=== PATIENT | female | born 1995 | race Caucasian/White ===

== ENCOUNTER 2021-04-26 09:54 | Inpatient (IN) | payer OTHER ==
[~2021-04-26] VITALS: Ht 160 cm; Wt 97.3 kg
[2021-04-26] VITALS (18 sets, daily range): BP systolic 108–150; BP diastolic 65–87
[2021-04-26] MEDS ORDERED: FLINCHW2 PO (10:26)
[2021-04-26] MEDS ORDERED: LACTATED RINGER'S 1000 ML IV STA (11:17)
[2021-04-26] MEDS ORDERED: METHYLERGONOVINE MALEATE 0.2 MG/ML VIAL (J2210) IM PRN (11:20)
[2021-04-26] MEDS ORDERED: CARBOPROST TROMETHAMINE 250 MCG/ML AMP IM PRN (11:20)
[2021-04-26] MEDS ORDERED: LIDOCAINE 1% MDV 20ML VIAL INFIL PRN (11:20)
[2021-04-26] MEDS ORDERED: TRANEXAMIC ACID INJection 1,000 MG in NS 100 ML IV PRN (11:20)
[2021-04-26] MEDS ORDERED: OXYTOCIN DRIP 30 UNITS in IV 1 EA IV SCH (11:20)
[2021-04-26] MEDS ORDERED: OXYTOCIN DRIP 30 UNITS in IV 1 EA IV PRN ×4 (11:20)
[2021-04-26] MEDS ORDERED: LR 1,000 ML IV SCH (11:20)
[2021-04-26 12:40] LABS: HEMATOCRIT 39.9 % (36.0-47.0); HEMOGLOBIN 13.3 g/dl (12.0-15.5); MEAN CORPUSCULAR HEMOGLOBIN 28.6 pg (27.0-33.0); MEAN CORPUSCULAR HGB CONC 33.3 g/dl (32.0-36.5); MEAN CORPUSCULAR VOLUME 85.8 fl (80.0-96.0); PLATELET COUNT, AUTOMATED 219 10^3/uL (150-450); RED BLOOD COUNT 4.65 10^6/uL (4.00-5.40); WHITE BLOOD COUNT 10.7 10^3/uL (4.0-10.0)
--- NOTE | 2021-04-26 12:40 | HPEPDOC ---
Obstetrical History & Physical General Date of Admission Apr 26, 2021 at 09:54 History of Present Illness 25yo presents to L&D today for scheduled IOL at 41+1wks, for late term IOL. Still reporting irregular contractions, no more intense than when seen in clinic 2 days ago. Denies LOF or vaginal bleeding. Reporting good FM. No other concerns today. Chief Complaint: Induction of labor Information Provided By: Patient Age: 25 : 2 Term: 1 Pre-term: 0 Abortions: 0 Livin Care Care: Good Care Dating Final EDC: Apr 18, 2021 Final EDC for Daily Update: Apr 18, 2021 Final EDC by: LMP, 1st trimester (US) LMP: Jul 12, 2020 1st Trimester Date: Sep 19, 2020 Weeks + Days: 10.0 Estimated Date of Confinement: Apr 17, 2021 EGA at Admission: 41.1 Antepartum Course Diagnos(e)s Overweight with Excessive Wt Gain Height (inches): 64 Pre- weight (lbs.): 163 Admission Weight (lbs.): 215.2 Change in Weight (lbs.): 52.2 Past Medical History Past Obstetrical History : Past Obstetrical History: Multigravida (04/2019 at 40wks gestation, 7#13oz. No complications) [employer]ER SHA[employer] SINKING History: No pertinent history Past Medical History Medical History Seasonal Allergies, Eczema Surgical History: Denies/None Family History Significant Family History: No pertinent family hx Social History Marital Status: Family situation: Spouse/partner home Psychosocial History: No pertinent psych hx * Smoker: non-smoker Alcohol: Denies Drugs: denies Imunizations Tdap status: current Influenza Status: current Allergies Coded Allergies: Cephalosporins (Verified Allergy, Severe, anaphylaxis, 04/26/21) Penicillins (Verified Allergy, Severe, anaphylaxis, 04/26/21) iodine (Verified Allergy, Severe, anaphylaxis , 04/26/21) shellfish derived (Verified Allergy, Severe, anaphylaxis, 04/26/21) Medications Miscellaneous Medications Multivitamin (Flintstones) 1 Each Tab.chew, 1 CHW PO Physical Examination Physical Examination GENERAL: Alert and oriented times three. In no acute distress. BREAST: . ABDOMEN: Gravid and non-tender to touch. +BS x4 quad. FETUS: Is vertex (VTX) by sterile vaginal examination (SVE) & by Gus. HEART RATE: Regular rate and rhythm. LUNGS: Clear to auscultation (CTA). Unlabored breathing. EXTREMITIES: No edema. No calf tenderness. Vital Signs/I&O Vital Signs Date Time Temp Pulse Resp B/P (MAP) Pulse Ox O2 Delivery O2 Flow Rate FiO2 04/26/21 10:24 98.3 98 18 108/71 (83) Laboratory Data 24H LABS Laboratory Tests 2 04/26/21 10:03: Serology Scanned Report Hepatitis B Testing Urine Culture: Contaminated Pertinent Laboratoy Data Blood Type: AB+ RBC Antibody Screen: Negative HIV: Negative Hepatitis B: Negative Rapid Plasma Reagin: Nonreactive Rubella: Immune Varicella: Immune Chlamydia/Gonorrhea: Negative Group B Streptococcus: Negative Cystic Fibrosis: Negative Glucose Tolerance Test: 98 Anatomy Ultrasound Ultrasound Date: Dec 31, 2020 Placenta Location: Posterior Normal Anatomy: Yes Placenta Previa: No Vaginal Examination Dilation: 4 cm Effacement: 50% Station: -3 Cervical Consistency: Medium Cervical Position: Middle Presentation: Cephalic presentation Assessment Heart Rate (FHR): 135 Variability: Moderate Accelerations: Present Decelerations: None Tocometer Contractions: Yes Frequency: irregular Duration: less than 60 seconds Strength: palpated as mild Multi-drug resistant Organism: No history of MDRO Assessment/Plan Assessment 25-year-old at 41+1wks gestation, presents for late term IOL. AB+, GBS neg, /RI Reactive NST VTX by Laney, EFW 3900gm by Stefania SVE: 4/50/-3, mid/mod, favorable cervix Plan Admit and orient. Infection Control Manager and consent. Diet: Regular Labs and intravenous (IV) per unit protocol. Epidural when patient desires. Continuous EFM Counseled on Pitocin and induction of labor, start pitocin now per protocol for Induction. AROM as needed. Lactated Ringers (LR): Bolus 1000mL, then at 125 mL/hr. Consult with physician service as needed. Anticipate normal spontaneous delivery (). Labor and Delivery Counseling Patient counseled on risks of vaginal delivery to include hemorrhage, infection, and possibility of . Discussed options for interventions in labor to include external and internal monitoring, artificial rupture of membranes, induction of labor methods to include Pitocin. Reviewed possibility of blood transfusion in event of hemorrhage. SIPPEL,MARCK M. CN Apr 26, 2021 12:40
--- NOTE | 2021-04-26 14:52 | IPNPDOC ---
Obstetrical Progress Note Date of Service Apr 26, 2021 Subjective Pt reporting increase in contraction pain, but not to point of needing epidural yet. Spouse at Bedside. Spouse interested in assisting with delivery. Objective Vital Signs Date Time Temp Pulse Resp B/P (MAP) Pulse Ox O2 Delivery O2 Flow Rate FiO2 04/26/21 10:24 98.3 98 18 108/71 (83) Assessment Heart Rate (FHR): 130 Variability: Moderate Accelerations: Positive Decelerations: None Heart Rate Tracing: Category I Tocometer Contractions: Yes Frequency: regular, every 2-5 min. Duration: greater than 60 seconds Strength: palpated as moderate Sterile Vaginal Examination Dilation: 5 cm (-6) Effacement (%): 60% Station: -2 Cervical Consistency: Soft Cervical Position: Middle Postion/Presentation: Cephalic presentation Assessment and Plan Additional Comments 25yo at 41+1wks: admitted for IOL today RH pos/GBS neg/RI/ VSS FHR Cat 1 tracing Managing with pain, may have epidural when patient desires SVE: 5-6/60%/-2. AROM with clear fluid at 1407. Continue IOL with pitocin, titrate per protocol Consult with physician service as needed. Anticipate . MARCK NEGRETE CNM Apr 26, 2021 14:52
[2021-04-26] MEDS ORDERED: METHYLERGONOVINE MALEATE 0.2 MG TAB PO PRN (16:40)
[2021-04-26] MEDS ORDERED: DIBUCAINE 1% OINTMENT 30GM TOP PRN (16:40)
[2021-04-26] MEDS ORDERED: IBUPROFEN 800 MG TAB PO PRN (16:40)
[2021-04-26] MEDS ORDERED: DOCUSATE SODIUM 100MG CAPSULE PO PRN (16:40)
[2021-04-26] MEDS ORDERED: IBUPROFEN 600MG TAB PO PRN (16:40)
[2021-04-26] MEDS ORDERED: ONDANSETRON 4MG/2ML VIAL IV PRN (16:40)
[2021-04-26] MEDS ORDERED: ACETAMINOPHEN TAB 650MG DOSE (2X325MG) PO PRN (16:40)
--- NOTE | 2021-04-26 16:51 | DNPDOC ---
[facility] Delivery Note Delivery Note DATE OF DELIVERY: 26 April 2021 PREDELIVERY DIAGNOSIS: 25yo at 41+1 weeks' gestation, IOL for late term. POST DELIVERY DIAGNOSIS: Spontaneous vaginal delivery. PROCEDURE: Spontaneous vaginal delivery Delivery Provider: MAJ Kayla Negrete CNM ANESTHESIA: None ESTIMATED BLOOD LOSS: 250 mL. FINDINGS: Delivered viable infant male weighing 3560gm (7#14oz), Score 9/10. DELIVERY SUMMARY: Patient is a 25-year-old 2 now para 2-0-0-2 who was admitted to labor and delivery for IOL for late term. Progressed to C/C/+3 without any anesthesia on pitocin titration. Well controlled, spontaneous pushing efforts delivered infant OA. Right anterior shoulder, posterior shoulder, and corpus delivered easily with maternal pushing efforts. FOB assisting with delivery under this provider's hands on direction. Infant to maternal abdomen for drying, stimulation and assessment by nursing staff. Cord clamped x2 and cut by FOB following cessation of pulse. Placenta delivered with gentle cord traction, in Lukas mechanism, appears complete and intact. Fundus massaged to firm with minimal bleeding. Inspection revealed small, hemostatic and approximated clitoral laceration. No repair indicated. P erineum intact. Patient stable and at radiant warmer for assessment when I left room. Intends to breastfeed and use barrier method for control. KAYLA NEGRETE CNM Apr 26, 2021 16:51
--- NOTE | 2021-04-26 16:53 | IPNPDOC ---
Text Note Date of Service The patient was seen on 04/26/21. NOTE Date of Service Apr 26, 2021 Subjective Pt now feeling more pressure with contractions. Declining epidural at this time. Spouse at Bedside. Objective Vital Signs: mild elevations in BP SVE per RN: 8/0/0 Pitocin currently at 4mu/min Assessment Heart Rate (FHR): 125 Variability: Moderate Accelerations: Positive Decelerations: None Heart Rate Tracing: Category I Tocometer Contractions: Yes Frequency: regular, every 2 min. Duration: greater than 60 seconds Assessment and Plan Additional Comments 25yo at 41+1wks: admitted for IOL today RH pos/GBS neg/RI/ Intermittent elevated BP due to pain, repeats normal. FHR Cat 1 tracing Managing with pain, not interested in epidural at this time. SVE: 8/90/0. Continues with clear fluid. Continue IOL with pitocin, titrate per protocol Consult with physician service as needed. Anticipate . VS,Fishbone, I+O VS, Fishbone, I+O Laboratory Tests 04/26/21 12:24 Vital Signs Date Time Temp Pulse Resp B/P (MAP) Pulse Ox O2 Delivery O2 Flow Rate FiO2 04/26/21 15:53 100 20 150/81 (104) 04/26/21 13:54 98.3 MARCK NEGRETE CNM Apr 26, 2021 16:53
[2021-04-26] MEDS: ACETAMINOPHEN 500 MG TAB PO PRN (19:56)
[2021-04-27 06:00] VITALS: BP 138/83
--- NOTE | 2021-04-27 07:12 | IPNPDOC ---
Progress Note Date of Service: Apr 27, 2021 Day#: 1 Progress Note Patient is a 25-year-old 2 now para 2-0-0-2 who was admitted to labor and delivery for IOL for late term. Delivered viable infant male weighing 3560gm (7#14oz), Score 9/10. She has been ambulating, voiding s pontaneously without issue and tolerating regular diet. Breast feeding without issue. Reports lochia is like a normal period. Patient is ambulating well. Reports some cramping with . Denies any pain. Voiding and passing flatus without difficulty. OBJECTIVE: VITAL SIGNS: Within normal limits, afebrile. Alert and oriented times three. No increased WOB Heart rate: non-tachy Abdomen: Fundus firm at U-2. Soft, NTTP. Minimal lochia per patient ASSESSMENT: Patient is a 25-year-old 2 now para 2-0-0-2 who was admitted to labor and delivery for IOL for late term. Delivered viable infant male weighing 3560gm (7#14oz), Score 9/10. Vitals within normal limits, afebrile, hemodynamically stable with no evidence of infection. PLAN: 1. Discharge to home likely tomorrow. 2. Tylenol and Motrin for pain. 3. Encourage breast feeding and ambulation. 4. Plans on condoms for contraception, educated on close interval . 5. Routine PP visit in 6 weeks in clinic. 6. Discussed return precautions at length and activity limitations to include pelvic rest. VS, I&O, 24H, Phillipbone Vital Signs/I&O Vital Signs Date Time Temp Pulse Resp B/P (MAP) Pulse Ox O2 Delivery O2 Flow Rate FiO2 04/27/21 06:00 96.4 88 18 138/83 (101) 97 I&O- Last 24 Hours up to 6 AM 04/27/21 06:00 Intake Total 1167 ml Output Total 900 ml Balance 267 ml Laboratory Data 24H LABS Laboratory Tests 2 04/26/21 10:03: Serology Scanned Report Hepatitis B Testing 04/26/21 12:24: Nucleated Red Blood Cells % (auto) 0.0, Syphilis Serology NONREACTIVE CBC/BMP Laboratory Tests 04/26/21 12:24 MARIUSZ RENEE DO Apr 27, 2021 07:12
--- NOTE | 2021-04-27 07:14 | OBDS ---
[facility] Obstetrical Discharge Sum. A/P, Post Course List any complications Patient is a 25-year-old 2 now para 2-0-0-2 who was admitted to labor and delivery for induction of labor for late term. She delivered a viable male weighing 3560gm (7#14oz), Score 9/10. She has been ambulating, voiding spontaneously without issue and tolerating regular diet. Breast feeding without issue. Reports lochia is like a normal period. Patient is ambulating well. Reports some cramping with . Denies any pain. Voiding and passing flatus without difficulty. Vitals within normal limits, afebrile, hemodynamically stable with no evidence of infection. PLAN: 1. Discharge to home. 2. Tylenol and Motrin for pain. 3. Encourage breast feeding and ambulation. 4. Plans on condoms for contraception, educated on close interval . 5. Routine visit planned in 6 weeks in clinic. 6. Discussed return precautions at length (fever, heavy vaginal bleeding, pain uncontrolled with medications, other concerning symptoms) and activity limitations to include pelvic rest. MARIUSZ RENEE DO Apr 27, 2021 07:14
[2021-04-27] MEDS: ACETAMINOPHEN 500 MG TAB PO PRN (08:48)
[2021-04-27] MEDS: PRENATAL VITAMINS CHEWABLE TABLET PO SCH (09:00)
[2021-04-27 18:00] VITALS: BP 138/73
[2021-04-28] MEDS: ACETAMINOPHEN 500 MG TAB PO PRN (05:28)
[2021-04-28 06:00] VITALS: BP 132/81
--- NOTE | 2021-04-28 08:57 | IPNPDOC ---
Progress Note Date of Service: Apr 28, 2021 Day#: 2 Progress Note Patient is a 25-year-old 2 now para 2-0-0-2 who was admitted to labor and delivery for IOL for late term. Delivered viable infant male weighing 3560gm (7#14oz), Score 9/10. She has been ambulating, voiding s pontaneously without issue and tolerating regular diet. Breast feeding without issue. Reports lochia is like a normal period. Patient is ambulating well. Reports some cramping with . Denies any pain. Voiding and passing flatus without difficulty. OBJECTIVE: VITAL SIGNS: Within normal limits, afebrile. Alert and oriented times three. No increased WOB Heart rate: non-tachy Abdomen: Fundus firm at U-2. Soft, NTTP. Minimal lochia per patient ASSESSMENT: Patient is a 25-year-old 2 now para 2-0-0-2 who was admitted to labor and delivery for IOL for late term. Delivered viable infant male weighing 3560gm (7#14oz), Score 9/10. Vitals within normal limits, afebrile, hemodynamically stable with no evidence of infection. PLAN: 1. Discharge to home likely today 2. Tylenol and Motrin for pain. 3. Encourage breast feeding and ambulation. 4. Plans on condoms for contraception, educated on close interval . 5. Routine PP visit in 6 weeks in clinic. 6. Discussed return precautions at length and activity limitations to include pelvic rest. VS, I&O, 24H, Fishbone Vital Signs/I&O Vital Signs Date Time Temp Pulse Resp B/P (MAP) Pulse Ox O2 Delivery O2 Flow Rate FiO2 04/28/21 06:00 98.5 83 18 132/81 (98) 04/27/21 18:00 97 Room Air Laboratory Data 24H LABS Laboratory Tests 04/26/21 12:24 DOROTHY BARR M.D. Apr 28, 2021 08:57
[2021-04-28] MEDS: PRENATAL VITAMINS CHEWABLE TABLET PO SCH (09:00)
== END 2021-04-28 13:10 | disposition home or self-care (01) | DRG 806 ==
LOC: M LDI 09:54 → M OBS 18:30
PROVIDERS: ADMIT Registered Nurse Maternal Newborn; ATTEND Registered Nurse Maternal Newborn
PROC: 10E0XZZ Delivery of Products of Conception, External Approach (ICD-10-PCS; principal; 2021-04-26)
PROC: 3E033VJ Introduction of Other Hormone into Peripheral Vein, Percutaneous Approach (ICD-10-PCS; 2021-04-26)
DX: O48.0 Post-term pregnancy (principal); Z37.0 Single live birth; O71.4 Obstetric high vaginal laceration alone; Z3A.41 41 weeks gestation of pregnancy

== ENCOUNTER 2022-02-25 17:29 | Emergency (ER) | payer OTHER ==
[~2022-02-25] VITALS: Ht 162.6 cm; Wt 80.5 kg
[~2022-02-25 17:29] MED LIST: FLINCHW2 PO
[2022-02-25] MEDS ORDERED: methylPREDNISolone 125MG 2ML VIAL IV ONE (19:00)
[2022-02-25] MEDS ORDERED: FAMOTIDINE 20 MG TAB PO ONE (19:00)
[2022-02-25] MEDS ORDERED: diphenhydrAMINE 50MG CAP PO ONE (19:00)
[2022-02-25 20:40] VITALS: BP 114/62
[2022-02-25] MEDS ORDERED: PRED20TA PO (20:53)
== END 2022-02-25 20:58 | disposition home or self-care (01) ==
LOC: M ED 17:29
DX: J30.1 Allergic rhinitis due to pollen (principal); R21 Rash and other nonspecific skin eruption
CPT/HCPCS: 84702; 96374; 99284; J2930

== ENCOUNTER → 2022-08-04 | Outpatient (CLI) | payer OTHER ==
[~2022-08-04] MED LIST changes: +PRED20TA PO
[2022-08-04 15:53] LABS: HEMATOCRIT 43.6 % (36.0-47.0); HEMOGLOBIN 14.8 g/dl (12.0-15.5); MEAN CORPUSCULAR HEMOGLOBIN 31.1 pg (27.0-33.0); MEAN CORPUSCULAR HGB CONC 33.9 g/dl (32.0-36.5); MEAN CORPUSCULAR VOLUME 91.6 fl (80.0-96.0); PLATELET COUNT, AUTOMATED 285 10^3/uL (150-450); RED BLOOD COUNT 4.76 10^6/uL (4.00-5.40); WHITE BLOOD COUNT 11.6 10^3/uL (4.0-10.0)
[2022-08-04 18:03] LABS: HEPATITIS B SURFACE ANTIGEN NEGATIVE (NEGATIVE); HEPATITIS C VIRUS ABY INDEX < 0.0 INDEX (<0.8); HIV 1&2 SCREEN CENTAUR NEGATIVE (NEGATIVE)
[2022-08-04 19:19] LABS: GC DNA AMPLIFICATION NEGATIVE (NEGATIVE)
== END ==
LOC: M PLALAB 13:21
PROVIDERS: ATTEND Advanced Practice Midwife
DX: Z34.91 Encounter for supervision of normal pregnancy, unspecified, first trimester (principal); Z3A.00 Weeks of gestation of pregnancy not specified

== ENCOUNTER → 2022-10-01 | Outpatient (CLI) | payer OTHER | LOC: M WHC 11:35 | PROVIDERS: ATTEND Advanced Practice Midwife | DX: Z34.92 Encounter for supervision of normal pregnancy, unspecified, second trimester (principal); Z3A.19 19 weeks gestation of pregnancy ==

== ENCOUNTER → 2022-11-18 | Outpatient (CLI) | payer OTHER ==
[2022-11-18 17:22] LABS: HEMATOCRIT 37.4 % (36.0-47.0); HEMOGLOBIN 12.2 g/dl (12.0-15.5); MEAN CORPUSCULAR HEMOGLOBIN 31.2 pg (27.0-33.0); MEAN CORPUSCULAR HGB CONC 32.6 g/dl (32.0-36.5); MEAN CORPUSCULAR VOLUME 95.7 fl (80.0-96.0); PLATELET COUNT, AUTOMATED 270 10^3/uL (150-450); RED BLOOD COUNT 3.91 10^6/uL (4.00-5.40)
== END ==
LOC: M PLALAB 14:26
PROVIDERS: ATTEND Advanced Practice Midwife
DX: Z36.9 Encounter for antenatal screening, unspecified (principal)

== ENCOUNTER 2022-12-31 17:35 | Emergency (ER) | payer OTHER ==
[~2022-12-31] VITALS: Ht 157.5 cm; Wt 94.9 kg
[2022-12-31 19:04] VITALS: BP 127/78
== END 2022-12-31 19:59 | disposition admitted as inpatient to this hospital (09) ==
LOC: M ED 17:35
DX: O9A.213 Injury, poisoning and certain other consequences of external causes complicating pregnancy, third trimester (principal); S30.0XXA Contusion of lower back and pelvis, initial encounter; O26.893 Other specified pregnancy related conditions, third trimester; M54.50 Low back pain, unspecified; W10.9XXA Fall (on) (from) unspecified stairs and steps, initial encounter; F41.9 Anxiety disorder, unspecified; Z88.0 Allergy status to penicillin; Z88.1 Allergy status to other antibiotic agents; Z91.013 Allergy to seafood; Z79.810 Long term (current) use of selective estrogen receptor modulators (SERMs); Z3A.32 32 weeks gestation of pregnancy

== ENCOUNTER 2022-12-31 20:00 | Outpatient (CLI) | payer OTHER ==
[~2022-12-31] VITALS: Ht 157.5 cm; Wt 94.9 kg
[2022-12-31 20:16] VITALS: BP 134/79
[2022-12-31 20:38] LABS: HEMATOCRIT 34.9 % (36.0-47.0); HEMOGLOBIN 11.8 g/dl (12.0-15.5); MEAN CORPUSCULAR HEMOGLOBIN 30.8 pg (27.0-33.0); MEAN CORPUSCULAR HGB CONC 33.8 g/dl (32.0-36.5); MEAN CORPUSCULAR VOLUME 91.1 fl (80.0-96.0); PLATELET COUNT, AUTOMATED 257 10^3/uL (150-450); RED BLOOD COUNT 3.83 10^6/uL (4.00-5.40); WHITE BLOOD COUNT 17.6 10^3/uL (4.0-10.0)
[2022-12-31 21:00] LABS: INR 0.94; PROTHROMBIN TIME 12.8 SECONDS (12.5-14.5)
[2022-12-31 21:01] LABS: PARTIAL THROMBOPLASTIN TIME 27.5 SECONDS (24.8-34.2)
[2022-12-31 21:34] VITALS: BP 120/64
[2023-01-01 00:17] VITALS: BP 134/84
== END 2023-01-01 00:27 | disposition home or self-care (01) ==
LOC: M LDO 20:00
PROVIDERS: ATTEND Advanced Practice Midwife
DX: O26.893 Other specified pregnancy related conditions, third trimester (principal); W10.9XXA Fall (on) (from) unspecified stairs and steps, initial encounter; Y93.9 Activity, unspecified; Y99.9 Unspecified external cause status; Z3A.32 32 weeks gestation of pregnancy
CPT/HCPCS: 36415; 59025; 85027; 85384; 85460; 85610; 85730; 99283; G0463

== ENCOUNTER → 2023-01-23 | Outpatient (CLI) | payer OTHER | LOC: M WHC 13:03 | PROVIDERS: ATTEND Advanced Practice Midwife | DX: Z34.93 Encounter for supervision of normal pregnancy, unspecified, third trimester (principal); Z3A.35 35 weeks gestation of pregnancy ==

== ENCOUNTER → 2023-01-29 | Outpatient (REF) | payer OTHER | LOC: M SFHCWAGY 17:11 | PROVIDERS: ATTEND Obstetrics & Gynecology | DX: Z36.85 Encounter for antenatal screening for Streptococcus B (principal) ==

== ENCOUNTER 2023-02-17 18:15 | Inpatient (IN) | payer OTHER ==
[~2023-02-17] VITALS: Ht 162.6 cm; Wt 96.5 kg
[2023-02-17] MEDS ORDERED: PRENTAB9 PO (18:33)
[2023-02-17] MEDS ORDERED: LACTATED RINGER'S 1000 ML IV STA (18:34)
[2023-02-17] MEDS ORDERED: METHYLERGONOVINE MALEATE 0.2MG/ML 1ML VIAL IM PRN (18:35)
[2023-02-17] MEDS ORDERED: HOME MED LIST COMPLETE! XX SCH (18:35)
[2023-02-17] MEDS ORDERED: LR 1,000 ML IV SCH (18:35)
[2023-02-17] MEDS ORDERED: TRANEXAMIC ACID INJection 1,000 MG in NS 100 ML IV PRN (18:35)
[2023-02-17] MEDS ORDERED: LIDOCAINE 1% MDV 20ML VIAL INFIL PRN (18:35)
[2023-02-17] MEDS ORDERED: OXYTOCIN DRIP 30 UNITS in IV 1 EA IV PRN (18:35)
[2023-02-17] MEDS ORDERED: CARBOPROST TROMETHAMINE 250 MCG/ML AMP IM PRN (18:35)
[2023-02-17 18:48] VITALS: BP 143/82
[2023-02-17] MEDS: miSOPROStol 50MCG 1/2 TABLET SL SCH ×2 (19:54→23:00)
[2023-02-17 20:13] LABS: HEMOGLOBIN 11.5 g/dl (12.0-15.5); MEAN CORPUSCULAR HEMOGLOBIN 28.7 pg (27.0-33.0); MEAN CORPUSCULAR HGB CONC 32.9 g/dl (32.0-36.5); MEAN CORPUSCULAR VOLUME 87.3 fl (80.0-96.0); PLATELET COUNT, AUTOMATED 233 10^3/uL (150-450); RED BLOOD COUNT 4.01 10^6/uL (4.00-5.40); WHITE BLOOD COUNT 11.6 10^3/uL (4.0-10.0)
[2023-02-17 22:14] VITALS: BP 132/60
[2023-02-17 23:15] VITALS: BP 140/65
[2023-02-17 23:40] VITALS: BP 134/63
[2023-02-18] VITALS (32 sets, daily range): BP systolic 110–195; BP diastolic 53–121
[2023-02-18] MEDS ORDERED: OXYTOCIN DRIP 30 UNITS in IV 1 EA IV SCH ×2 (00:30→07:40)
[2023-02-18] MEDS: miSOPROStol 50MCG 1/2 TABLET SL SCH ×2 (03:00→07:00)
[2023-02-18] MEDS ORDERED: LABETALOL 100MG/20ML VIAL IV STA (05:59)
[2023-02-18] MEDS ORDERED: DOCUSATE SODIUM 100MG CAPSULE PO PRN (07:40)
[2023-02-18] MEDS ORDERED: METHYLERGONOVINE MALEATE 0.2 MG TAB PO PRN (07:40)
[2023-02-18] MEDS ORDERED: IBUPROFEN 600MG TAB PO PRN (07:40)
[2023-02-18] MEDS ORDERED: ACETAMINOPHEN TAB 650MG DOSE (2X325MG) PO PRN (07:40)
[2023-02-18] MEDS ORDERED: DIBUCAINE 1% OINTMENT 30GM TOP PRN (07:40)
[2023-02-18] MEDS ORDERED: RHOGAM 300MCG (1500IU) INJ IM SCH (07:40)
[2023-02-18] MEDS ORDERED: IBUPROFEN 800 MG TAB PO PRN (07:40)
[2023-02-18] MEDS: PRENATAL VITAMINS CHEWABLE TABLET PO SCH (09:00)
[2023-02-18] MEDS: ACETAMINOPHEN 500 MG TAB PO PRN (17:25)
[2023-02-19 06:00] VITALS: BP 106/61
[2023-02-19] MEDS: PRENATAL VITAMINS CHEWABLE TABLET PO SCH (08:27)
[2023-02-19 12:03] VITALS: BP 129/76
[2023-02-19 16:05] VITALS: BP 128/79
[2023-02-19] MEDS: ACETAMINOPHEN 500 MG TAB PO PRN (18:56)
[2023-02-20 06:00] VITALS: BP 119/74
[2023-02-20] MEDS: ACETAMINOPHEN 500 MG TAB PO PRN (08:36)
[2023-02-20] MEDS ORDERED: MEASLES,MUMPS,RUBELLA VACCINE INJ (MMR-II) SC.IMMUN ONE (09:00)
== END 2023-02-20 11:20 | disposition home or self-care (01) | DRG 807 ==
LOC: M LDI 18:15 → M OBS 02-18 10:15
PROVIDERS: ADMIT Obstetrics & Gynecology; ATTEND Obstetrics & Gynecology
PROC: 3E033VJ Introduction of Other Hormone into Peripheral Vein, Percutaneous Approach (ICD-10-PCS; 2023-02-17)
PROC: 10E0XZZ Delivery of Products of Conception, External Approach (ICD-10-PCS; principal; 2023-02-18)
DX: O80 Encounter for full-term uncomplicated delivery (principal); Z37.0 Single live birth; Z3A.39 39 weeks gestation of pregnancy; Z88.0 Allergy status to penicillin; Z91.013 Allergy to seafood; Z88.8 Allergy status to other drugs, medicaments and biological substances

== ENCOUNTER 2023-08-30 10:21 | Emergency (ER) | payer OTHER ==
[~2023-08-30] VITALS: Ht 162.6 cm; Wt 83.4 kg
[2023-08-30 10:21] VITALS: BP 119/74; TEMP 97.3; O2SAT 97
[~2023-08-30 10:21] MED LIST changes: +PRENTAB9 PO
[2023-08-30] MEDS ORDERED: SERT25TA21 (10:42)
[2023-08-30] MEDS ORDERED: KETOROLAC 30 MG/ML 1ML VIAL IM ONE (13:45)
== END 2023-08-30 14:08 | disposition home or self-care (01) ==
LOC: M ED 10:21
DX: S00.03XA Contusion of scalp, initial encounter (principal); W22.8XXA Striking against or struck by other objects, initial encounter; F41.9 Anxiety disorder, unspecified; Y92.009 Unspecified place in unspecified non-institutional (private) residence as the place of occurrence of the external cause; Y93.89 Activity, other specified; Y99.9 Unspecified external cause status; Z88.0 Allergy status to penicillin; Z88.8 Allergy status to other drugs, medicaments and biological substances; Z91.013 Allergy to seafood; Z79.899 Other long term (current) drug therapy
CPT/HCPCS: 70450; 96372; 99282; J1885

== ENCOUNTER → 2023-09-24 | Outpatient (CLI) | payer OTHER ==
[~2023-09-24] MED LIST changes: +SERT25TA21
[2023-09-24 18:47] LABS: HCG, SERUM QUALITATIVE NEGATIVE (NEGATIVE)
== END ==
LOC: M PLALAB 15:37
PROVIDERS: ATTEND Nurse Practitioner Family
DX: Z30.09 Encounter for other general counseling and advice on contraception (principal)